=== PATIENT | female | born 1965 | race Two or more races ===

== ENCOUNTER 2025-02-05 15:08 | Emergency (ER) | payer MEDICAID, OTHER ==
[~2025-02-05] VITALS: Ht 160 cm; Wt 98.5 kg
[2025-02-05 15:56] VITALS: BP 119/93; PULSE 92; RESP 16; TEMP 99.1; O2SAT 96
[2025-02-05] MEDS ORDERED: CEPH500C PO (16:15)
[2025-02-05] MEDS ORDERED: IBUP-1454 PO (16:15)
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
[2025-02-05] MEDS: methylPREDNISolone SOD SUCC 125 MG/2 ML VL IM ONE (16:49)
[2025-02-05] MEDS: KETOROLAC TROMETH 30 MG/ML 1ML VIAL IM ONE (16:49)
== END 2025-02-05 17:13 | disposition home or self-care (01) ==
LOC: ER 15:08
DX: S10.86XA Insect bite of other specified part of neck, initial encounter (principal); Z79.1 Long term (current) use of non-steroidal anti-inflammatories (NSAID); W57.XXXA Bitten or stung by nonvenomous insect and other nonvenomous arthropods, initial encounter; Y93.89 Activity, other specified; Y92.89 Other specified places as the place of occurrence of the external cause; Y99.8 Other external cause status
CPT/HCPCS: 96372; 99284; J1885; J2919

== ENCOUNTER 2025-05-28 17:35 | Emergency (ER) | payer MEDICAID ==
[~2025-05-28] VITALS: Ht 157.5 cm; Wt 94.4 kg
[~2025-05-28 17:35] MED LIST: CEPH500C PO; IBUP-1454 PO
--- NOTE | 2025-05-28 18:37 | ED.PDOC ---
History of Present Illness HPI Comments This is a 59-year-old female with no significant past medical history presented to the ED with a chief complaint of diffuse pelvic pain and lower abdominal pain with passing clots in the urine for last 2 weeks . The patient states that for last 2 weeks she was having abdominal pain and lower pelvic pain with passage of clots in the urine and also burning sensation in the urine for the same duration. She also mentioned chills and fever since yesterday. She went to the urgent care last week for this symptoms and was prescribed penicillin that she took for 3 days but symptoms did not resolve and discontinued the medication. Chief Complaint: Urinary Time Seen by MD: 18:14 Primary Care Provider: unknown Allergies: Coded Allergies: NO KNOWN ALLERGIES (Unverified , 02/05/25) Home Meds Active Scripts Ibuprofen (Ibuprofen) 600 Mg Tab, 1 TAB PO TID for 10 Days, #30 TAB 0 Refills Prov:LAURIE TOWNSEND [employer] 02/05/25 Cephalexin Monohydrate (Cephalexin) 500 Mg Cap, 1 CAP PO QID for 5 Days, #20 CAP 0 Refills Prov:LAURIE TOWNSEND [employer] 02/05/25 Information Source: Patient Mode of Arrival: Ambulatory Severity: Severe Timing: Weeks Duration: Since onset Prehospital treatment: None Past Medical History Past Medical History (Contd): None Surgical History: Denies all surgeries Surgical History (Cont'd) None 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 Family History Family History: Reviewed,noncontributory to illness Social History Smoker: Non-Smoker Alcohol: Denies ETOH Use Drugs: Denies Drug Use Constitutional: reports: chills, fever, malaise; denies: diaphoresis, fatigue, sweats, weakness, others EENTM: denies: blurred vision, double vision, ear bleeding, ear discharge, ear drainage, ear pain, ear ringing, eye pain, eye redness, hearing loss, mouth pain, mouth swelling, nasal discharge, nose bleeding, nose congestion, nose pain, photophobia, tearing, throat pain, throat swelling, voice changes, others Respiratory: denies: cough, hemoptysis, orthopnea, SOB at rest, shortness of breath, SOB with excertion, stridor, wheezing, others Cardiovascular: denies: chest pain, dizzy spells, diaphoresis, Dyspnea on exertion, edema, irregular heart beat, left arm pain, lightheadedness, palpitations, PND, syncope, others Gastrointestinal: reports: abdominal pain; denies: abdomen distended, blood streaked bowels, constipated, diarrhea, dysphagia, difficulty swallowing, hematemesis, melena, nausea, poor appetite, poor fluid intake, rectal bleeding, rectal pain, vomiting, others Genitourinary: reports: burning, dysuria, hematuria; denies: abnormal vagina bleeding, dyspareunia, flank pain, frequency, incontinence, pain, , vagina discharge, urgency, others Neurological: denies: dizziness, fainting, headache, left sided numbness, left sided weakness, numbness, paresthesia, pre-existing deficit, right sided numbness, right sided weakness, seizure, speech problems, tingling, tremors, weakness, others Musculoskeletal: denies: back pain, gout, joint pain, joint swelling, muscle pain, muscle stiffness, neck pain, others Integumetry: denies: bruises, change in color, change in hair/nails, dryness, laceration, lesions, lumps, rash, wounds, others Allergic/Immunocompromised: denies: Difficulty Healing, Frequent Infections, Hives, Itching, others Hematologic/Lymphatic: denies: anemia, blood clots, easy bleeding, easy bruising, swollen glands, others Endocrine: denies: excessive hunger, excessive sweating, excessive thirst, excessive urination, flushing, intolerance to cold, intolerance to heat, unexplained weight gain, unexplained weight loss, others Psychiatric: denies: anxiety, bipolar disorder, depression, hopeless, panic disorder, schizophrenia, sleepless, suicidal, others Physical Exam General Appearance: Mild Distress HEENT: Normal ENT Inspection, Pharynx Normal, TMs Normal Neck: Full Range of Motion, Non-Tender, Normal, Normal Inspection Respiratory: Chest Non-Tender, Lungs Clear, No Accessory Muscle Use, No Respiratory Distress, Normal Breath Sounds Cardiovascular: Regular Rate/Rhythm Breast Exam: Deferred Gastrointestinal: No Organomegaly, Non Tender, No Pulsatile Mass, Normal Bowel Sounds, Soft Genitalia: Deferred Pelvic: Deferred Rectal: None Extremities: None Neurologic: Alert, booster operator II-XII nml as Tested, No Motor Deficits, Normal Affect, Normal Mood, No Sensory Deficits Cerebellar Function: NOT DONE Reflexes: NOT DONE Skin: NOT DONE Peripheral Pulses: 2+ carotid (R), 2+ carotid (L), 2+ femoral (R), 2+ femoral (L), 2+ dorsalis pedis (R), 2+ dorsalis pedis (L), 2+ Radial (R), 2+ Radial (L), 2+ Brachial (R), 2+ Brachial (L) Lymphatic: NOT DONE Was a procedure done? Was a procedure done?: No Differential Dx Considerations may include: UTI, cystitis, sepsis, kidney stones, bleeding disorder, postmenopausal bleeding X-Ray, Labs, Meds, VS Lab Test 05/28/25 18:47 Range/Units White Blood Count 11.5 H 4.4-10.8 10^3/uL Red Blood Count 4.63 4.0-5.20 10^6/uL Hemoglobin 13.6 12.2-16.2 g/dL Hematocrit 39.8 36.0-46.0 % Mean Corpuscular Volume 85.9 80.0-100.0 fL Mean Corpuscular Hemoglobin 29.4 28.0-32.0 pg Mean Corpuscular Hemoglobin Concent 34.3 32.0-36.0 g/dL Red Cell Distribution Width 13.1 11.8-14.3 % Platelet Count 243 140-450 10^3/uL Mean Platelet Volume 8.1 6.9-10.8 fL Neutrophils (%) (Auto) 58.7 37.0-80.0 % Lymphocytes (%) (Auto) 31.0 10.0-50.0 % Monocytes (%) (Auto) 8.2 0.0-12.0 % Eosinophils (%) (Auto) 1.8 0.0-7.0 % Basophils (%) (Auto) 0.3 0.0-2.0 % Neutrophils # (Auto) 6.7 1.6-8.6 10 ^3/uL Lymphocytes # (Auto) 3.6 0.4-5.4 10 ^3/uL Monocytes # (Auto) 0.9 0-1.3 10 ^3/uL Eosinophils # (Auto) 0.2 0-0.8 10 ^3/uL Basophils # (Auto) 0 0-0.2 10 ^3/uL Nucleated Red Blood Cells 0.1 % Sodium Level 138 136-145 mmol/L Potassium Level 4.0 3.5-5.1 mmol/L Chloride Level 104 98-107 mmol/L Carbon Dioxide Level 25 20-31 mmol/L Anion Gap 9 5-15 Blood Urea Nitrogen 12 9-23 mg/dL Creatinine 0.94 0.550-1.02 mg/dL Glomerular Filtration Rate Calc 71 >90 mL/min BUN/Creatinine Ratio 12.8 10.0-20.0 Serum Glucose 90 74-106 mg/dL Lactic Acid Level 1.7 0.4-2.0 mmol/L Calcium Level 10.1 8.7-10.4 mg/dL Total Bilirubin 0.6 0.2-1.0 mg/dL Aspartate Amino Transferase (AST) 19 13-40 U/L Alanine Aminotransferase (ALT) 25 7-40 U/L Alkaline Phosphatase 97 46-116 U/L Total Protein 8.1 5.7-8.2 g/dL Albumin 5.0 H 3.2-4.8 g/dL Images Reviewed?: Images reviewed and evaluated by me Time of 1ST Reevaluation: 18:20 Reevaluation 1ST: Unchanged Time of 2ND Reevaluation: 19:35 Reevaluation 2ND: Unchanged Patient Education/Counseling: Diagnosis, Treatment Family Education/Counseling: No Family Present SEPSIS Sepsis Screen Physician Orders Urinalysis (05/28/25 18:26) Kidney (05/28/25 18:26) Ceftriaxone 1gm/50ml D5w (Rocephin) (05/28/25 19:30) Morphine Sulfate Injection (05/28/25 19:30) Urine Bacterial Culture (05/28/25 19:26) Laboratory Tests Test 05/28/25 18:47 Lactic Acid Level 1.7 mmol/L (0.4-2.0) White Blood Count 11.5 10^3/uL (4.4-10.8) H Departure 1 Departure Time of Disposition: 19:35 Impression: Primary Impression: Complicated UTI (urinary tract infection) Disposition: 30 STILL A PATIENT Condition: Guarded Critical Care Note Critical Care Time?: No Stability Stability form required: DEEPTHI Chandler RESIDENT May 28, 2025 18:37
[2025-05-28 19:02] LABS: Hematocrit 39.8 % (36.0-46.0); Hemoglobin 13.6 g/dL (12.2-16.2); Mean Corpuscular Hemoglobin 29.4 pg (28.0-32.0); Mean Corpuscular Volume 85.9 fL (80.0-100.0); Nucleated Red Blood Cells % 0.1 %
[2025-05-28 19:20] LABS: Alanine Aminotransferase 25 U/L (7-40); Alkaline Phosphatase 97 U/L (46-116); Anion Gap 9 (5-15); BUN/Creatinine Ratio 12.8 (10.0-20.0); Blood Urea Nitrogen 12 mg/dL (9-23); Calcium 10.1 mg/dL (8.7-10.4); Carbon Dioxide 25 mmol/L (20-31); Chloride 104 mmol/L (98-107); Glucose 90 mg/dL (74-106); Potassium 4.0 mmol/L (3.5-5.1); Sodium 138 mmol/L (136-145); Total Protein 8.1 g/dL (5.7-8.2)
[2025-05-28 19:21] LABS: Bilirubin, Total 0.6 mg/dL (0.2-1.0)
[2025-05-28 19:25] LABS: Albumin 5.0 g/dL (3.2-4.8)
--- NOTE | 2025-05-28 19:38 | DVH ---
RENAL ULTRASOUND CLINICAL HISTORY: Gross hematuria TECHNIQUE: Multiple grayscale ultrasound images were obtained through the kidneys and urinary bladder . COMPARISON: None FINDINGS: Right kidney: Measures 10.9 cm. No hydronephrosis. Left kidney: Measures 10.4 cm. No hydronephrosis. Urinary bladder: Unremarkable. Prevoid volume is 123 mL. Bilateral ureteral jets are visualized. Increased echogenicity of the visualized liver. IMPRESSION: Normal size kidneys without evidence of hydronephrosis. Increased echogenicity of the visualized liver suggesting steatosis.
[2025-05-28] MEDS: cefTRIAXone 1GM/50ML D5W 50 ML IV ONE (20:30)
[2025-05-28] MEDS: MORPHINE SULFATE INJ 2 MG/ml SYRG IV ONE (21:07)
[2025-05-28 21:33] LABS: Urine Protein, UAD TRACE (Negative)
[2025-05-28] MEDS: SODIUM CHLORIDE 0.9% 1,000 ML IV ONE (22:07)
[2025-05-29] MEDS: LORazepam 2MG/ML-1ML VIAL ONE (00:38)
[2025-05-29] MEDS ORDERED: BACDST PO (04:12)
[2025-05-29 04:27] VITALS: BP 129/78; PULSE 71; RESP 14; TEMP 98.3; O2SAT 92
== END 2025-05-29 04:57 | disposition home or self-care (01) ==
LOC: ER 17:35
DX: N39.0 Urinary tract infection, site not specified (principal)
CPT/HCPCS: 36415; 76775; 80053; 81001; 83605; 85025; 87086; 96365; 96375; 99285; J0696; J2060; J2270; J7030; 87088; 87186